=== PATIENT | female | born 1960 ===

== ENCOUNTER 2020-09-28 06:00 | Outpatient (RCR) | payer BC, SELFPAY | END 2020-10-08 23:59 | disposition home or self-care (01) | LOC: MPT 06:00 | PROVIDERS: Referring Provider Obstetrics & Gynecology; Visit Provider Obstetrics & Gynecology | DX: K59.9 Functional intestinal disorder, unspecified (principal) | CPT/HCPCS: 97140; 97161; 97530 ==

== ENCOUNTER 2020-10-09 06:00 | Outpatient (RCR) | payer BC, SELFPAY | END 2020-11-08 23:59 | disposition home or self-care (01) | LOC: MPT 06:00 | PROVIDERS: Referring Provider Obstetrics & Gynecology; Visit Provider Obstetrics & Gynecology | DX: K59.9 Functional intestinal disorder, unspecified (principal) | CPT/HCPCS: 97110; 97140; 97530 ==

== ENCOUNTER 2020-11-09 06:00 | Outpatient (RCR) | payer BC, SELFPAY | END 2020-12-08 23:59 | disposition home or self-care (01) | LOC: MPT 06:00 | PROVIDERS: Referring Provider Nurse Practitioner; Visit Provider Nurse Practitioner | DX: K56.609 Unspecified intestinal obstruction, unspecified as to partial versus complete obstruction (principal) | CPT/HCPCS: 97140 ==

== ENCOUNTER 2021-01-09 06:00 | Outpatient (RCR) | payer BC, SELFPAY | END 2021-02-08 23:59 | disposition home or self-care (01) | LOC: MPT 06:00 | PROVIDERS: Referring Provider Nurse Practitioner; Visit Provider Nurse Practitioner | DX: K59.9 Functional intestinal disorder, unspecified (principal) | CPT/HCPCS: 97530 ==